=== PATIENT | female | born 1980 | race Caucasian/White ===

== ENCOUNTER 2018-03-29 06:59 | Day surgery (SDC) | payer BC, SELFPAY ==
[2018-03-29] VITALS (7 sets, daily range): BP systolic 120–133; BP diastolic 79–97; PULSE 79–97; RESP 16; TEMP 36.2–36.6; O2SAT 93–100; BMI 25.7
[2018-03-29 07:26] LABS: Internal QC Validated? YES +Cl - CLEAR BKGD; Pregnancy, Urine Negative Negative
[2018-03-29] MEDS: Ciprofloxacin 400 MG/200 ML BAG 200 MG IV (07:45)
--- NOTE | 2018-03-29 09:40 | PCM.DC.URO ---
Discharge Diet: No Restrictions Discharge Activity: Return to Normal Activity, May not drive while taking narcotic pain medications. Call your doctor if you observe: Fever of 101 or Higher, Inability to urinate, Chest pain, Calf discomfort, Uncontrolled pain Allergies/Adverse Reactions: Allergies cefuroxime [From Ceftin] Allergy (Verified 03/26/18 16:16) Hives Medications to take at Discharge Activated Charcoal [Charcoal, Activated] 2 cap PO BID 03/26/18 Cholecalciferol (Vitamin D3) [Vitamin D3] 1,000 unit PO DAILY 03/26/18 Fexofenadine HCl [Cata Allergy] 180 mg PO PRN PRN 03/26/18 Norgestimate-Ethinyl Estradiol [Tri-Sprintec Tablet] 1 each PO DAILY 03/26/18 Sertraline HCl [Zoloft] 100 mg PO DAILY 03/26/18 Orders to be completed after discharge: Abdomen Single View [RAD] Location: None Selected Primary Care Physician: Jonny Bolanos [Primary Care Provider] - Test Results: Test results from this visit will be discussed in further detail at your follow-up appointment, if applicable. Please Follow Up With: Gertrudis Ambrosio MD When: 3 weeks with SHANTAL Proposed Discharge Date: 03/29/18
--- NOTE | 2018-03-29 09:43 | DCINST_ITS ---
Discharge Diet: No Restrictions Discharge Activity: Return to Normal Activity, May not drive while taking narcotic pain medications. Call your doctor if you observe: Fever of 101 or Higher, Inability to urinate, Chest pain, Calf discomfort, Uncontrolled pain Allergies/Adverse Reactions: Allergies cefuroxime [From Ceftin] Allergy (Verified 03/26/18 16:16) Hives Medications to take at Discharge Activated Charcoal [Charcoal, Activated] 2 cap PO BID 03/26/18 Cholecalciferol (Vitamin D3) [Vitamin D3] 1,000 unit PO DAILY 03/26/18 Fexofenadine HCl [Cata Allergy] 180 mg PO PRN PRN 03/26/18 Norgestimate-Ethinyl Estradiol [Tri-Sprintec Tablet] 1 each PO DAILY 03/26/18 Sertraline HCl [Zoloft] 100 mg PO DAILY 03/26/18 Orders to be completed after discharge: Abdomen Single View [RAD] Location: None Selected Primary Care Physician: Jonny Bolanos [Primary Care Provider] - Test Results: Test results from this visit will be discussed in further detail at your follow- up appointment, if applicable. Please Follow Up With: Gertrudis Ambrosio MD When: 3 weeks with SHANTAL Proposed Discharge Date: 03/29/18
--- NOTE | 2018-03-29 09:50 | OP.PN_ITS ---
Immediate Post-Op Note Date of Procedure: 03/29/18 Primary Surgeon/Physician: Gertrudis Ambrosio MD cloth printing back tender: Gertrudis Ambrosio Pre-Operative Diagnosis: left renal calculus Post-Operative Diagnosis: same Surgery/Procedure Performed:: left renal extra corporeal shockwave lithotripsy Description of Surgical Findings:: left lower pole stone, well fragmented and case concluded at 2000 shocks. Estimated Blood Loss: 1cc Specimen's removed: none Type of Anesthesia:: General - Admit VTE Documentation VTE Present on Admission: Yes VTE Mechan Device Prophylaxis: SCD's VTE Pharm Prophylaxis ordered?: No Reason prophylaxis not ordered:: Treatment Not Indicated
--- NOTE | 2018-03-29 10:48 | OP.PCM_ITS ---
Problem List (1) Renal calculus, left Status: Acute Report of Operation Date of Procedure: 03/29/18 Pre-Operative Diagnosis: left renal calculus Post-Operative Diagnosis: same Surgery/Procedure Performed:: left renal extra corporeal shockwave lithotripsy Description of Surgical Findings:: left lower pole stone, well fragmented and case concluded at 2000 shocks. cleaning associate: Gertrudis Ambrosio Type of Anesthesia:: General Specimen's removed: none Estimated Blood Loss (mL): 1cc Description of Procedure: The patient is a 37-year-old female having intermittent left flank pain and was identified as having a left lower pole renal calculus. After discussing all the risks benefits and alternatives she agreed to proceed with surgical intervention. The patient was taken to the operating room placed on the operating room table. Anesthesia monitored the head, neck, airway, IV access, vital signs throughout the case. Once anesthesia was appropriately administered, the patient was lined with the lithotripter. The stone was easily seen with the fluoroscopy. 1,500 shocks were applied and the stone was barely visible. The decision was made to apply 500 more shocks at which point the stone was unable to be identified. At this point the case was terminated. She was awakened and taken to the recovery room in good condition. There were no complications during this procedure. Grafts/Implants Used: none - Complications none - Admit VTE Documentation VTE Present on Admission: Yes VTE Mechan Device Prophylaxis: SCD's VTE Pharm Prophylaxis ordered?: No Reason prophylaxis not ordered:: Treatment Not Indicated
--- OUTSIDE RECORDS SUMMARY | 2018-05-24 06:53 | XMS RPT_ITS ---
:1980 Author Organization [facility] Care Team Providers Name Role Phone DIANA CUETO MD Attending Unavailable JEFF MATTHEW, DR. DYLON King Primary Care Unavailable DIANA CUETO MD Attending Unavailable JEFF MATTHEW, DR. DYLON King Primary Care Unavailable ROCKY AMBROSIO Admitting Unavailable ROCKY AMBROSIO Attending Unavailable ROCKY AMBROSIO Primary Care Unavailable DYLON AGUILAR Consulting Unavailable PROVIDER, UNKNOWN Consulting Unavailable PROVIDER, UNKNOWN Consulting Unavailable PROVIDER, UNKNOWN Consulting Unavailable ROCKY AMBROSIO Admitting Unavailable ROCKY AMBROSIO Attending Unavailable ROCKY AMBROSIO Primary Care Unavailable DYLON AGUILAR Consulting Unavailable PROVIDER, UNKNOWN Consulting Unavailable PROVIDER, UNKNOWN Consulting Unavailable PROVIDER, UNKNOWN Consulting Unavailable Rocky Ambrosio Attending Unavailable Rocky Ambrosio Referring Unavailable Dylon Aguilar Primary Care Unavailable PROBLEMS PROBLEMS DATE TYPE CONDITION / CODE ATTENDING STATUS SOURCE 03/29/2018 Unknown N20.0 - Calculus Rocky Ambrosio Active [facility] of kidney / Community N20.0(ICD-10) Hospital Repository PROCEDURES PROCEDURES No Procedure Records FoundRESULTS RESULTS ABDOMEN 1 VIEW Observed: 04/12/2018 Status: F Source: [place] 2:29 PM [place] [address] Patient: GARIMA GAONA Phone#: : 1980 Age: 37 Gender: F Pt. Type: Out Account: [id number] Location: [facility] Ordering: ROCKY AMBROSIO Exam Date: 04/12/2018/14:11 Family Phys: Charge Code: 616706 Physician: Antelope Order #: [id number] DLP Dose#: PROCEDURE: ABDOMEN 1 VIEW COMPARISON: [facility], XR, ABDOMEN 1 VIEW, 02/14/2018, 13:31. INDICATIONS: Left renal calculus. FINDINGS: BOWEL GAS PATTERN: Normal. No abnormal dilation or deviation. CALCIFICATIONS: None significant. Bowel gas and stool obscure renal details. There is no obvious calcification identified in the kidneys or in the distribution of the ureters. OTHER: Negative. No abnormal gaseous collections. CONCLUSION: No acute disease. Bowel gas and stool obscure renal details. Dictated by: Antonella Karimi MD on 04/12/2018 at 14:32 Approved by: Antonella Karimi MD on 04/12/2018 at 14:32 OPERATIVE REPORT Observed: 03/29/2018 Status: F Source: [place] 10:[address] [facility] Medical Records Department [address] [place] [id number] Operative Report 03/29/18 1045 MR#: [id number] Acct: [id number] Name: GARIMA GAONA Rep #: [id number] : 1980 37 From: Rocky Ambrosio MD PCP: Dylon Aguilar MD Status: [facility] Location: [place] [address] Problem List (1) Renal calculus, left Status: Acute Report of Operation Date of Procedure: 03/29/18 Pre-Operative Diagnosis: left renal calculus Post-Operative Diagnosis: same Surgery/Procedure Performed:: left renal extra corporeal shockwave lithotripsy Description of Surgical Findings:: left lower pole stone, well fragmented and case concluded at 2000 shocks. gliding pilot instructor: Rocky Ambrosio Type of Anesthesia:: General Specimen's removed: none Estimated Blood Loss (mL): 1cc Description of Procedure: The patient is a 37-year-old female having intermittent left flank pain and was identified as having a left lower pole renal calculus. After discussing all the risks benefits and alternatives she agreed to proceed with surgical intervention. The patient was taken to the operating room placed on the operating room table. Anesthesia monitored the head, neck, airway, IV access, vital signs throughout the case. Once anesthesia was appropriately administered, the patient was lined with the lithotripter. The stone was easily seen with the fluoroscopy. 1,500 shocks were applied and the stone was barely visible. The decision was made to apply 500 more shocks at which point the stone was unable to be identified. At this point the case was terminated. She was awakened and taken to the recovery room in good condition. There were no complications during this procedure. Grafts/Implants Used: none - Complications none - Admit VTE Documentation VTE Present on Admission: Yes VTE Mechan Device Prophylaxis: SCD's VTE Pharm Prophylaxis ordered?: No Reason prophylaxis not ordered:: Treatment Not Indicated 03/29/18 1048 <Electronically signed by Rocky Ambrosio MD> Date Rocky Ambrosio MD CC: Rocky Ambrosio MD; Dylon Aguilar MD Signed DISCHARGE INSTRUCTION Observed: 03/29/2018 Status: F Source: [place] 9:43 AM [facility] REPOSITORY [facility] Medical Records Department [address] [place] [address] Instructions for Home/Discharge Instructions 03/29/18 0940 MR#: [id number] Acct: [id number] Name: GARIMA GAONA Rep #: [id number] : 1980 37 From: Rocky Ambrosio MD PCP: Dylon Aguilar MD Status: [facility] Discharge Diet: No Restrictions Discharge Activity: Return to Normal Activity, May not drive while taking narcotic pain medications. Call your doctor if you observe: Fever of 101 or Higher, Inability to urinate, Chest pain, Calf discomfort, Uncontrolled pain Allergies/Adverse Reactions: Allergies cefuroxime [From Ceftin] Allergy (Verified 03/26/18 16:16) Hives Medications to take at Discharge Activated Charcoal [Charcoal, Activated] 2 cap PO BID 03/26/18 Cholecalciferol (Vitamin D3) [Vitamin D3] 1,000 unit PO DAILY 03/26/18 Fexofenadine HCl [Cata Allergy] 180 mg PO PRN PRN 03/26/18 Norgestimate-Ethinyl Estradiol [Tri-Sprintec Tablet] 1 each PO DAILY 03/26/18 Sertraline HCl [Zoloft] 100 mg PO DAILY 03/26/18 Orders to be completed after discharge: Abdomen Single View [RAD] Location: None Selected Primary Care Physician: Dylon Aguilar [Primary Care Provider] - Test Results: Test results from this visit will be discussed in further detail at your follow-up appointment, if applicable. Please Follow Up With: Rocky Ambrosio MD When: 3 weeks with KUB Proposed Discharge Date: 03/29/18 03/29/18 0943 <Electronically signed by Rocky Ambrosio MD> Date Rocky Ambrosio MD CC: Dylon Aguilar MD ,URINE Collected: 03/29/2018 Status: F Source: [place] 7:16 AM [facility] REPOSITORY Order Comment: Reason for Laboratory Test PRE OP TYPE CODE TESTS RESULT OUT OF REFERENCE UNITS RANGE LAB L400.8000 Negative Normal HCGUQUAL Negative Result Comment: Very dilute urine specimens, as indicated by a low specific gravity, may not contain quality audit representative levels of hCG. If is still suspected, a first morning urine specimen should be collected 48 hours later and tested. Performed By: #### L400.7600 #### [facility] [address] [place], [address] ABDOMEN 1 VIEW Observed: 02/14/2018 Status: F Source: [place] 1:53 PM [facility] REPOSITORY [facility] [address] [place], [place] [address] Patient: GARIMA GAONA Phone#: : 1980 Age: 37 Gender: F Pt. Type: Out Account: [id number] Location: 052 Ordering: ROCKY AMBROSIO Exam Date: 02/14/2018/13:31 Family Phys: Charge Code: 110237 Physician: Antelope Order #: [id number] DLP Dose#: PROCEDURE: ABDOMEN 1 VIEW COMPARISON: [facility], XR, KUB, 02/27/2017, 10:50. INDICATIONS: Kidney stone FINDINGS: BOWEL GAS PATTERN: Mild stool retention is present diffusely. No abnormal dilation or deviation. CALCIFICATIONS: A calcification is present superimposed on the lower pole of the left kidney unchanged from previous exam. There are are no other calcifications in the distribution of the kidneys or ureters. OTHER: Negative. No abnormal gaseous collections. CONCLUSION: 1. Calcification superimposed on lower pole of the left kidney unchanged since prior exam. Dictated by: Antonella Karimi MD on 02/14/2018 at 14:46 Approved by: Antonella Karimi MD on 02/14/2018 at 14:46 XR ABDOMEN AP Observed: 07/13/2017 Status: F Source: [address] [facility] REPOSITORY ORIGINAL XR ABDOMEN AP CLINICAL STATEMENT: LEFT RENAL CALCULUS COMPARISON: 09/11/2015 FINDINGS:Right kidney is obscured by fecal material. There is an inferior pole left renal calculus. No opaque calculus along the anticipated course of either ureter is noted. There are no pathologic pel nancy calcifications confirmed. Osseous structures are intact. Nonspecific fecal content and gas pattern is noted IMPRESSION:Left renal calculus Interpreted By: Ratna Joyce MD Preliminary Report By: Ratna Joyce MD Electronically Signed By: Ratna Joyce MD Dictated Date: 07/13/2017 2:16:18 PM Prelim Date: 07/13/2017 2:16:18 PM Sign Date: 07/13/2017 2:16:48 PM ALLERGIES ALLERGIES DATE TYPE / CODE NAME / CODE REACTION SEVERITY SOURCE 03/26/2018 Drug cefuroxime/F Hives Unknown [facility] Allergy/4160 [id number]( Hospital 73694(SNOMED NORM) Repository CT) Drug CEFTIN/58968 HIVES Moderate Tyree Pomerene Allergy/4160 069(RXNORM) (Severity [facility] 35704(SNOMED Modifier) Repository CT) (Qualifier Value) ENCOUNTERS ENCOUNTERS ADMIT/DISCHARGE ACCOUNT NUMBER ADMITTING ENCOUNTER LOCATION SOURCE CLASS 04/13/2018 [id number] Ambulatory ABuilding:XR [facility] Repository 04/12/2018/04/12/20 [id number] [place], Ambulatory Tyree Pomerene [address] [facility] Repository 03/29/2018/03/29/20 [id number] Ambulatory [address] ding:SDCRoom Repository : AC20 02/14/2018/02/15/20 [id number] [place], Ambulatory Tyree Pomerene 18 [facility] Repository 07/13/2017/07/14/19 [id number] Ambulatory [place] [address] ing:Critical access hospital Repository PAYERS PAYERS ENCOUNTER GUARANTOR PAYER SUBSCRIBER SOURCE 04/13/2018 GARIMA GAONADOB: [facility] RABERDOB: Insurance:CAR HARRIS [id number] [facility] [place] [id number] [address] Number: [id number] [id number] [place] [id number]: [place] Date:2018-04-13 - [id number] ()Tel: [phone]@Cate: Name:AVA CHAMORRO [phone] () [id number], [place] () [address]DD: 04/12/2018 MARYANA Jay Primary MARYANA RABERDOB: Tyree Pomerene RABERDOB: Insurance:[employer]HE[employer] BLUE [id number] [facility] [id number] [employer] [address] OUTPATIENTPolicy [address] [place] [address], Repository [address] [place] [address], Number: Hi [id number] Hi [id number]: Date:Plan Name: () 03/29/2018 MARYANA DALLAS90 Primary MARYANA RABERDOB: Octaviano TR Insurance:ANTHEMPolicy [id number], Number: [facility] [address]Nbv: [id number] Repository Date:1644-04-97LL [address] () [address], [place] [address]CF: 03/29/2018 Secondary NOT GIVENUNK Neal Insurance:SELF PAY [facility] Hospital Number: Effective Repository Date:2018-03-05 02/14/2018 MARYANA Jay Primary MARYANA RABERDOB: Tyree Cochran RABERDOB: Insurance:[employer]HEM BLUE [id number] [facility] CROSS COMMERCIAL [address] OUTPATIENTPolicy [address] [place] [address], Repository [address] [place] [address], Number: Hi [id number] Hi [id number]: Date:Plan Name: () 07/13/2017 GARIMA Jenkins Primary MARYANA RABERDOB: [facility] RABERDOB: Insurance:[employer] BLUE [id number] [facility] [place] [id number] CROSS COMMERCIALPolicy [address] [address] Repository [facility] Number: [address] [place] [address], [id number] [place] [id number]: [place] Date:2017-07-12 - [id number] ()Tel: [phone] [email or web address].David: Name:[facility] [phone] () [address], [place] () [address]KY:
== END 2018-03-29 11:11 | disposition home or self-care (01) ==
LOC: SDC 06:59 → AC 07:02
PROVIDERS: Anesthesiology; Family Provider Family Medicine; PCP Family Medicine; Referring Provider Urology; Visit Provider Urology
PROC: (CPT 50590; principal; 2018-03-29 08:20)
DX: N20.0 Calculus of kidney (principal); N39.3 Stress incontinence (female) (male); R35.1 Nocturia; F32.9 Major depressive disorder, single episode, unspecified; Z79.899 Other long term (current) drug therapy; Z87.442 Personal history of urinary calculi; Z87.440 Personal history of urinary (tract) infections
CPT/HCPCS: 50590; 81025; J7120; J0744; J2405